=== PATIENT | female | born 2000 | race Two or more races ===

== ENCOUNTER 2024-06-28 17:00 | Emergency (ER) | payer OTHER ==
[~2024-06-28] VITALS: Ht 157.5 cm; Wt 59.0 kg
[2024-06-28] MEDS ORDERED: ZESTRIL5 MG (17:06)
[2024-06-28] MEDS ORDERED: KETOROLAC TROMETHAMINE 30 MG VIAL IV ONE (17:30)
[2024-06-28] MEDS ORDERED: 0.9 % SODIUM CHLORIDE 1,000 ML IV SCH (17:30)
[2024-06-28] MEDS ORDERED: CEFTRIAXONE SODIUM 1,000 MG VIAL IV ONE (17:30)
[2024-06-28] MEDS ORDERED: KETOROLAC TROMETHAMINE 30 MG VIAL ONE (17:57)
[2024-06-28] MEDS ORDERED: CEFTRIAXONE SODIUM 1,000 MG VIAL ONE (17:58)
[2024-06-28 18:04] LABS: HEMATOCRIT 33.6 % (36.0-45.00); HEMOGLOBIN 11.3 g/dL (12.0-15.00); MEAN CELL VOLUME 76.6 fL (80.00-100.00); MEAN CORPUSCULAR HEMOGLOBIN 25.7 pg (27.00-32.0); MEAN CORPUSCULAR HGB CONC 33.5 g/dl (32.0-36.0); PLATELET COUNT 243 K/uL (150-450); RED BLOOD COUNT 4.39 M/uL (4.00-6.00); RED CELL DISTRIBUTION WIDTH 15.7 % (11.5-14.5)
[2024-06-28 18:29] LABS: ALBUMIN 3.3 gm/dL (3.4-5.0); BILIRUBIN TOTAL 0.32 mg/dL (0.3-1.2); CALCIUM 8.7 mg/dL (8.5-10.1); CREATININE SERUM 0.72 mg/dL (0.55-1.02); GFR 102.25; GLOBULINA 5.6 G/DL (2.4-3.5); POTASSIUM 3.5 mEq/L (3.5-5.1); TOTAL PROTEIN 8.9 gm/dL (6.4-8.2); TSH 1.37 uIU/mL (0.358-3.74)
[2024-06-29] MEDS ORDERED: PIPERACILLIN/TAZOBACTAM SODIUM 3.375 GM in 0.9 % SODIUM CHLORIDE 100 ML IV SCH (00:17)
[2024-06-29] MEDS ORDERED: PIPERACILLIN/TAZOBACTAM SODIUM 3.375 GM VIAL IV ONE ×4 (00:37→17:52)
[2024-06-29 15:51] VITALS: BP 100/52; O2SAT 98
== END 2024-06-29 18:37 | disposition designated cancer center or children's hospital (05) ==
LOC: ER 17:02
PROVIDERS: General Practice
DX: L02.818 Cutaneous abscess of other sites (principal); R59.1 Generalized enlarged lymph nodes; J18.1 Lobar pneumonia, unspecified organism; I10 Essential (primary) hypertension